=== PATIENT | female | born 1985 | race Caucasian/White ===

== ENCOUNTER 2022-04-09 04:39 | Emergency (ER) | payer OTHER, SELFPAY ==
[2022-04-09 05:11] VITALS: BP 137/84; BP 140/85; PULSE 78; PULSE 88; RESP 18; TEMP 36.9; O2SAT 97; O2SAT 98; BMI 24.0
[2022-04-09 05:14] VITALS: BP 140/85; PULSE 88; RESP 18; TEMP 36.9; O2SAT 97
[2022-04-09 05:27] LABS: Amphetamine Screen Urine Not Detected (Not Detect); Barbiturates, Urine Not Detected (Not Detect); Benzodiazepines Screen Urine Not Detected (Not Detect); Cannabinoid Screen Urine Not Detected (Not Detect); Cocaine Screen Urine Not Detected (Not Detect); Fentanyl, urine Not Detected (Not Detect); Opiate Screen Urine Not Detected (Not Detect); Phencyclidine Screen Urine Not Detected (Not Detect)
--- NOTE | 2022-04-09 06:37 | ED.ALCOHOL ---
HPI - Alcohol General Chief Complaint: ETOH/Substance Use Stated Complaint: ETOH Time Seen by Provider: 04/09/22 06:33 Source: EMS Mode of arrival: EMS Limitations: other (Alcohol intoxication) History of Present Illness HPI narrative: Patient comes to the emergency room via EMS for alcohol intoxication. According to EMS and police department, patient was found intoxicated outside someone's residence. Patient is too intoxicated to give any history. Patient is awake, a bit combative. EMS reports that the patient has history of narcolepsy. When patient gets intoxicated, sometime she gets very angry and then falls asleep. Here in the emergency room, patient trying to walk, slurred, saying that she is sober and wants to go home. Patient was given a warm blanket and fell asleep. Related Data Allergies Allergy/AdvReac Type Severity Reaction Status Date / Time Unable to Assess Allergy Unverified 04/09/22 06:43 Review of Systems Review of Systems: Yes Unobtainable due to mental condition (Intoxicated) [facility] Past Medical History Medical History (Updated 04/09/22 @ 06:45 by Lali Roldan MD) Alcohol abuse Narcolepsy Social History Social History Alcohol intake: current Alcohol intake frequency: holidays/special occasions only Patient Tobacco Use Status: Never used Tobacco Use of substances other than those prescribed or required for medical reasons: No Patient : No Physical Exam ED Vital Signs: Vital Signs - 24 hr 04/09/22 05:11 04/09/22 05:14 Temperature 98.5 F 98.5 F Pulse Rate 88 88 Respiratory Rate 18 18 Blood Pressure 140/85 H 140/85 H Pulse Oximetry 97 97 Oxygen Delivery Method Room Air Room Air BMI result Body Mass Index 24.0 Const Other: Appearance: Alert. Intoxicated, yelling and slurring Eyes: Pupils equal, round and reactive to light. ENT: Pharynx normal. Neck: Normal inspection. Neck supple. No lymph nodes noted. No crepitus CVS: Normal heart rate and rhythm. Pulses normal. Normal S1 and S2 Respiratory: No respiratory distress. Breath sounds normal. No Wheezing. No rales Abdomen: Soft and nontender. No rigidity. No distention. Skin: Skin warm and dry. Normal skin color. Normal skin turgor. Extremities: No lower extremity edema. No Lacerations. No Rash Neuro: Patient is clinically intoxicated, CN 2 through 12 grossly intact Psych: Anxious, but redirectable Course Course Course Narrative: Metabolize to freedom Physician observation started at 05:00 Sign-out given to Dr. Alfred MDM - Alcohol Lab Data Labs: Lab Results 04/09/22 Range/Units 05:05 Urine Opiates Screen Not Detected (Not Detect) Urine Fentanyl Screen Not Detected (Not Detect) Ur Barbiturates Screen Not Detected (Not Detect) Ur Phencyclidine Scrn Not Detected (Not Detect) Ur Amphetamines Screen Not Detected (Not Detect) U Benzodiazepines Scrn Not Detected (Not Detect) Urine Cocaine Screen Not Detected (Not Detect) U Marijuana (THC) Screen Not Detected (Not Detect) Discharge Plan Discharge Clinical Impression: Alcoholic intoxication Patient Disposition: Still a Patient
[2022-04-09 08:20] VITALS: BP 109/61; PULSE 85; RESP 16; O2SAT 96
[2022-04-09 10:57] VITALS: BP 140/92; PULSE 98; RESP 20; O2SAT 94
== END 2022-04-09 11:45 | disposition home or self-care (01) ==
PROVIDERS: Emergency Provider Emergency Medicine; PCP Internal Medicine
DX: F10.120 Alcohol abuse with intoxication, uncomplicated (principal); Y90.9 Presence of alcohol in blood, level not specified; F41.9 Anxiety disorder, unspecified
CPT/HCPCS: 80307; 99284; 99285

== ENCOUNTER 2022-05-21 01:55 | Emergency (ER) | payer OTHER, SELFPAY ==
[2022-05-21 02:12] VITALS: BP 150/100; BP 155/90; PULSE 103; PULSE 110; RESP 18; TEMP 36.3; O2SAT 100; O2SAT 98; BMI 23.3
[2022-05-21] MEDS: Diphth,Pertus(ACell),Tet Adult 0.5 ML SYRINGE IM (03:31)
--- NOTE | 2022-05-21 04:00 | ED_ITS ---
HPI - Wound/Laceration General Chief Complaint: Wound/Laceration Stated Complaint: FINGER LAC FROM PICKING UP BROKEN GLASS Time Seen by Provider: 05/21/22 02:36 Source: patient Mode of arrival: EMS History of Present Illness HPI narrative: 37-year-old female brought in by ambulance for laceration to left pinky and middle finger with glass. Patient is unsure of last tetanus shot. Related Data Allergies Allergy/AdvReac Type Severity Reaction Status Date / Time No Known Allergies Allergy Verified 05/21/22 02:18 Review of Systems Review of Systems: Pertinent positives and negatives as stated in HPI 10 point review of systems is otherwise negative. [facility] Past Medical History Source: nursing notes reviewed Medical History Alcohol abuse Narcolepsy Social History Social History Alcohol intake: current Alcohol intake frequency: a few times a week Patient Tobacco Use Status: Never used Tobacco Use of substances other than those prescribed or required for medical reasons: No Advance Directives: No Advance Directives Information Provided: No Patient : No Physical Exam Vital Signs: Vital Signs: Last Vital Signs Temp 97.4 F 05/21/22 02:12 Pulse 103 H 05/21/22 02:12 Resp 18 05/21/22 02:12 BP 155/90 H 05/21/22 02:12 Pulse Ox 100 05/21/22 02:12 O2 Del Method 05/21/22 02:12 BMI result Body Mass Index 23.3 VITAL SIGNS: Reviewed. GENERAL: Well developed, well nourished, in no acute distress. HEAD: Normocephalic/atraumatic EYES: PERRLA, EOMI EARS: Ext canals without abnormality OROPHARYNX: no oral lesions noted, posterior pharynx clear LUNGS: Normal breath sounds. No adventitious sounds or accessory muscle use. SpO2<100> CARDIOVASCULAR: Regular rate and rhythm without noted murmurs ABDOMEN: Soft, non-tender, non-distended with bowel sounds. MUSCULOSKELETAL: No tenderness, deformities, or effusions noted on gross inspection. EXTREMITIES: No cyanosis, clubbing or edema; LEFT HAND: There is a 3 cm laceration that extends from the lateral aspect of the pinky finger tip distal and then curves onto the pad of the pinky finger. In addition, there is a small laceration noted to the nail bed of the middle finger which is 2 cm SKIN: Inspection of the skin reveals no rashes NEUROLOGIC: Alert and oriented x 4. Strength and sensation to light touch were grossly intact x 4. Course Course Course Narrative: 37-year-old female with history and clinical presentation consistent with laceration left 5th finger as well as middle finger. Repaired successfully with sutures without complication and patient received tetanus shot. Procedures Laceration Laceration 1: Site: hand (Pinky) Side (If applicable): left Size (cm): 3 Description: linear Depth: simple, single layer and involves muscle layer Local Anesthetic: lidocaine 1% Amount of anesthesia used (mL): 5 Pre-repair: wound explored, irrigated extensively and deep structures intact Skin layer closed with: nylon Size (cm): 4-0 Number of sutures: 5 Technique: simple, interrupted Laceration 2: Site: hand (Middle finger) Side (If applicable): left Size (cm): 2 Description: linear Depth: simple, single layer Local Anesthetic: lidocaine 1% Amount of anesthesia used (mL): 5 Pre-repair: wound explored, irrigated extensively and deep structures intact Skin layer closed with: nylon Size (cm): 4-0 Number of sutures: 2 Technique: simple, interrupted Discharge Plan Discharge Clinical Impression: Hand laceration Patient Disposition: Home, Self-Care Instructions: Finger Laceration (ED), Care For Your Stitches (ED) Additional Instructions: 1. Recommend [id number] Tylenol/ibuprofen as needed for pain control. 2. You will need to visit your primary care provider or return to this emergency room for removal of your sutures in 7 days. 3. You may gently cleanse the fingers with soap and water, blot dry, apply antibiotic ointment and then place a dressing to cover the stitches. 4. Please follow-up with your primary care provider. Return to the ER for worsening symptoms. Referrals: Edwige Vidal MD [Primary Care Provider] -
[2022-05-21 04:48] VITALS: BP 138/89; PULSE 86; RESP 17; TEMP 36.7; O2SAT 98
== END 2022-05-21 05:03 | disposition home or self-care (01) ==
PROVIDERS: Emergency Provider Student in an Organized Health Care Education/Training Program; PCP Internal Medicine
DX: S61.217A Laceration without foreign body of left little finger without damage to nail, initial encounter (principal); S61.213A Laceration without foreign body of left middle finger without damage to nail, initial encounter; W25.XXXA Contact with sharp glass, initial encounter; Y93.E9 Activity, other interior property and clothing maintenance; Y92.019 Unspecified place in single-family (private) house as the place of occurrence of the external cause; Y99.9 Unspecified external cause status
CPT/HCPCS: 12042; 90471; 90715; 99284